=== PATIENT | male | born 1995 | race Caucasian/White ===

== ENCOUNTER 2018-07-24 09:26 | Emergency (ER) | payer OTHER ==
[2018-07-24 09:54] VITALS: BP 127/70
[2018-07-24] MEDS ORDERED: Ibuprofen TAB* 600 MG PO ONE (10:20)
--- NOTE | 2018-07-24 10:25 | UC ---
Hand/Wrist HPI - HPI Summary HPI Summary: 22 y/o male presents to the urgent care c/o left hand pain and difficulty making a fist s/p injury last night. Pt reports he was arguing and became very upset and hit the floor w/ his hand. This morning his hand is swollen and unable to make a fist or bend fingers 4th and 5th. Pain is 2/10 at rest and 6/ 10 w/ movement. He has not taking anything to alleviate symptoms. Pt denies numbness or tingling sensation over the hand or fingers, SOB chest pain, abdominal pain, N/V/D. Hx of previous injury to that hand. - History Of Current Complaint Chief Complaint: UCUpperExtremity Stated Complaint: HAND INJURY Time Seen by Provider: 07/24/18 10:08 Hx Obtained From: Patient Onset/Duration: Sudden Onset, Lasting Hours - 12 hrs, Still Present, Worse Since - today Severity Initially: Moderate Severity Currently: Moderate Pain Intensity: 6 Pain Scale Used: 0-10 Numeric Character Of Pain: Sharp Aggravating Factor(s): Movement, Lifting, Flexion, Pulling Alleviating Factor(s): Rest Associated Signs And Symptoms: Positive: Swelling - mild. Negative: Bruising, Fever, Weakness, Numbness/Tingling Related History: Dominant Hand Right - Allergies/Home Medications Allergies/Adverse Reactions: Allergies Allergy/AdvReac Type Severity Reaction Status Date / Time No Known Allergies Allergy Verified 07/24/18 09:54 Home Medications: Home Medications ALPRAZolam TAB* [Xanax TAB*] 0.25 mg PO Q6H PRN 07/24/18 [History Confirmed ] ARIPiprazole TAB* [Abilify TAB*] 5 mg PO DAILY 07/24/18 [History Confirmed ] PMH/Surg Hx/FS Hx/Imm Hx Previously Healthy: Yes Respiratory History: Asthma - Surgical History Surgical History: None - Family History Known Family History: Positive: Hypertension Negative: Cardiac Disease, Diabetes - Social History Occupation: Student Lives: With Family Alcohol Use: Occasionally Substance Use Type: None Substance Use Comment - Amount & Last Used: not currently Smoking Status (MU): Never Smoked Tobacco Have You Smoked in the Last Year: No - Immunization History Most Recent Influenza Vaccination: Unknown Most Recent Tetanus Shot: unk Most Recent Pneumonia Vaccination: Unknown Vaccination Up to Date: Yes Review of Systems All Other Systems Reviewed And Are Negative: Yes Constitutional: Positive: Negative Skin: Positive: Other - left hand swelling s/p injury Eyes: Positive: Negative ENT: Positive: Negative Respiratory: Positive: Negative Cardiovascular: Positive: Negative Gastrointestinal: Positive: Negative Genitourinary: Positive: Negative Motor: Positive: Negative Neurovascular: Positive: Negative Musculoskeletal: Positive: Decreased ROM - left hand and 4th and 5th finger s/p injury, Other: - left hand pain s/p injury Neurological: Positive: Negative Psychological: Positive: Negative Is Patient Immunocompromised?: No Physical Exam - Summary Physical Exam Summary: Vital Signs Reviewed: Yes General: Well developed well nourished male sitting in the examining table w/o any apparent distress Eyes: Positive: Conjunctiva Clear - PERRLA, EOMI ENT: Positive: Normal ENT inspection, Hearing grossly normal, Pharynx normal, TMs normal Neck: Positive: Supple, Nontender, No Lymphadenopathy Respiratory: Positive: Chest non-tender, Lungs clear, Normal breath sounds, No respiratory distress Cardiovascular: Positive: RRR, No Murmur, Pulses Normal, Brisk Capillary Refill Abdomen Description: Positive: Nontender, No Organomegaly, Soft. Negative: CVA Tenderness (R), CVA Tenderness (L) Bowel Sounds: Positive: Present Musculoskeletal: Positive: Strength Intact, No Edema,left Hand/Fingers: the L hand is without obvious asymmetry or deformity when compared to the R hand. mild swelling around dorsal side of #5 metacarpal and MCPJ, no erythema, atrophy, or obvious deformity. No surface trauma, open wounds,bony deformity. Normal cascade of fingers. Normal flexion and extension of fingers, except for # 5 phalanx due to pain. FDS and FDP intact against resistance. No focal fullness , throbbing pain, swelling of finger tip. Pulses and capillary refill WNL, positive reflexes and sensation intact Neurological Exam: Normal Psychological Exam: Normal Skin Exam: Normal Triage Information Reviewed: Yes Vital Signs: Initial Vital Signs Temp 98.3 F 07/24/18 09:46 Pulse 79 07/24/18 09:46 Resp 18 07/24/18 09:46 BP 127/70 07/24/18 09:46 Pulse Ox 99 07/24/18 09:46 Hand/Wrist Course/Dx - Course Course Of Treatment: 22 y/o male presents to the urgent care c/o left hand pain and difficulty making a fist s/p injury last night. Pt reports he was arguing and became very upset and hit the floor w/ his hand. This morning his hand is swollen and unable to make a fist or bend fingers 4th and 5th. Pain is 2/10 at rest and 6/10 w/ movement. He has not taking anything to alleviate symptoms. Pt denies numbness or tingling sensation over the hand or fingers, SOB chest pain, abdominal pain, N/V/D. Hx of previous injury to that hand. Hx obtained. Left hand X-ray ordered: impression: grossly non-displaced intrarticular fracture of the radial margin at the base of the 5th metacarpal w/ soft tissue swelling. Dr Carrington consulted on Pt's symptoms and he recommended ulnar gutter splint. Pt' s finger immobilized with a ulnar gutter splint. Pt tolerated well procedure and neurovascular intact after splinting.. Pt given Ice and Ibuprofen PO at the clinic by nurse for pain. Pain decrease. Pt Rx same Medication and advised RICE for pain. Advised to F/u with Orthopedic Dr Scanlon in 1-2 days for further evaluation and treatment. Pt understood and agreed with D/C instructions. - Differential Dx/Diagnosis Differential Diagnosis/HQI/PQRI: Contusion, Dislocation, Fracture, Sprain, Strain, Tendonitis Provider Diagnosis: Left hand pain, Nondisplaced fracture of fifth metacarpal bone of left hand Discharge - Sign-Out/Discharge Documenting (check all that apply): Patient Departure - D/C home All imaging exams completed and their final reports reviewed: Yes - Discharge Plan Condition: Stable Disposition: HOME Prescriptions: Ibuprofen TAB* [Motrin TAB* 600 MG] 600 mg PO Q6H PRN #30 tab PRN Reason: Pain Patient Education Materials: Hand Fracture (ED) Referrals: Ryan Scanlon MD [Medical Doctor] - 1 Day Vinicius Hughes MD [Primary Care Provider] - 3 Days Additional Instructions: 1-Please take Ibuprofen PO q6-8hrs prn after meals as directed to alleviate pain and swelling. 2-Please apply ice, keep your hand immobilized with the splint. 3- Please f/u with Orthopedic Dr Scanlon in 1-2 days for further evaluation and treatment. - Billing Disposition and Condition Condition: STABLE Disposition: Home
== END 2018-07-24 11:22 | disposition home or self-care (01) ==
LOC: UCEAST 09:26
DX: S62.347A Nondisplaced fracture of base of fifth metacarpal bone, left hand, initial encounter for closed fracture (principal); W22.09XA Striking against other stationary object, initial encounter; Y92.9 Unspecified place or not applicable
CPT/HCPCS: 99212; A9270-GY; G0463

== ENCOUNTER 2018-08-30 10:03 | Emergency (ER) | payer OTHER ==
--- OUTSIDE RECORDS SUMMARY | 2018-08-30 10:10 | XMS REPORT | Continuity of Care Document ---
:1995 External Reference #:[id number] Author Name Lillian Stephenson Care Team Providers Name Role Phone Vinicius Hughes MD Primary Care Physician Unavailable Payers Type Date Identification Numbers Payment Provider Subscriber Policy Number: [id number] [employer] drew maier dsouza PayID: [id number] [address] [place] [address] Effective: 2000 Policy Number: [id number] Himanshu Wang Expires: 2000 PayID: [id number] [address] [place] [address] Advance Directives Description No Information Available Problems Date Description Provider Status Onset: 08/13/2018 Nondisplaced fracture of base of fifth Vinicius Lou MD Active metacarpal bone, left hand, subsequent encounter for fracture with routine healing Family History Date Family Member(s) Problem(s) Comments General No Current Problems Social History Type Date Description Comments Sex Unknown Lives With Roommate Occupation Not Currently Working ETOH Use Denies alcohol use Tobacco Use Start: Unknown Patient has never smoked Smoking Status Reviewed: 08/13/18 Patient has never smoked Exercise Type/Frequency Exercises regularly Allergies, Adverse Reactions, Alerts Description No Known Drug Allergies Medications Medication Date Status Form Strength Qnty SIG Indications Ordering Provider Ibuprofen 200 0 Active Tablets 200mg 400-600mg Unknown 000 every 6 hours as needed for pain. Xanax 0 Active Tablets 0.25mg one by Unknown 000 mouth up to three times daily as needed for anxiety Inderal LA Active Caps ER 60mg 1 by mouth Unknown 000 24HR every day Depakote Active Tablets DR 500mg 1 by mouth Unknown 000 twice a day Immunizations CPT Code Status Date Vaccine Lot # [id number] Given 03/11/2002 IPV/Poliomyelitis Immunization [id number] Given 03/11/2002 Measles Mumps And Rubella MMR 07542 Given 03/11/2002 DTaP Vaccine Younger Than 7 [id number] Given 02/25/2001 Poliovirus Vaccine OPV Live Oral Use 64552 Given 02/25/2001 Measles Mumps And Rubella MMR 53954 Given 02/25/2001 DTaP Vaccine Younger Than 7 76839 Given 03/30/1998 DTP Toxoids & Hib Vaccine 97568 Given 03/30/1998 Measles Mumps And Rubella MMR Vital Signs Date Vital Result Comment 08/13/2018 9:19am Height 70 inches 5'10" Heart Rate 70 /min BP Systolic 118 mmHg BP Diastolic 78 mmHg Respiratory Rate 18 /min Body Temperature 98.1 F Pain Level 1 07/26/2018 2:14pm Height 70 inches 5'10" Weight 160.00 lb BP Systolic Sitting 110 mmHg BP Diastolic Sitting 66 mmHg Respiratory Rate 16 /min Pain Level 1 BMI (Body Mass Index) 23.0 kg/m2 Results Description No Information Available Procedures Date Code Description Status 07/26/2018 36215 Short Arm Cast Application Completed Encounters Type Date Location Provider Dx Diagnosis Office Visit 07/26/2018 Orthopedic Vinicius Lou, S62.347A Nondisp fx of 2:00p [facility] AT MD base of fifth Cerulean metacarpal bone, left hand, init Plan of Treatment Future Appointment(s):09/04/2018 10:15 am - Vinicius Lou MD [facility]/13/2018 - Vinicius Lou, MDS62.347D Nondisplaced fracture of base of fifth metacarpal bone, leftFollow up:Follow up: 2 weeks
[2018-08-30 10:13] VITALS: BP 131/83
[2018-08-30] MEDS ORDERED: Azithromycin TAB* 250 MG PO ONE (10:41)
[2018-08-30] MEDS ORDERED: cefTRIAXone VIAL(*) 250 MG VIAL IM ONE (10:41)
[2018-08-30] MEDS ORDERED: Lidocaine 1%* 5 ML VIAL INJ ONE (10:45)
--- NOTE | 2018-08-30 10:47 | UC ---
Complaint Male HPI - HPI Summary HPI Summary: EX-GIRLFRIEND CALLED HIM YESTERDAY TO ADVISE HIM SHE HAD BEEN DIAGNOSED WITH CHLAMYDIA. PATIENT IS HERE FOR TESTING AND TREATMENT. HE IS ASYMPTOMATIC. NO DYSURIA OR PENILE DISCHARGE. NO ABDOMINAL PAIN, FEVER, NAUSEA. LAST UNPROTECTED SEX ABOUT 1-1/2 WEEKS AGO. - History of Current Complaint Chief Complaint: UCSTDScreening Stated Complaint: PERSONAL Time Seen by Provider: 08/30/18 10:19 Hx Obtained From: Patient Pain Intensity: 0 Pain Scale Used: 0-10 Numeric Associated Signs And Symptoms: Positive: Negative - Allergies/Home Medications Allergies/Adverse Reactions: Allergies Allergy/AdvReac Type Severity Reaction Status Date / Time No Known Allergies Allergy Verified 08/30/18 10:13 Home Medications: Home Medications Divalproex ER TAB(*) [Depakote ER TAB(*)] 500 mg PO DAILY 08/30/18 [History Confirmed 08/30/18] Propranolol TAB* [Inderal TAB*] 10 mg PO DAILY 08/30/18 [History Confirmed 08/30] Venlafaxine EXT RELEASE CAP* [Effexor Xr CAP*] 37.5 mg PO DAILY 08/30/18 [ History Confirmed 08/30/18] PMH/Surg Hx/FS Hx/Imm Hx Psychological History: Anxiety, Depression - Surgical History Surgical History: None - Family History Known Family History: Positive: Hypertension Negative: Cardiac Disease, Diabetes - Social History Alcohol Use: Occasionally Substance Use Type: None Substance Use Comment - Amount & Last Used: not currently Smoking Status (MU): Never Smoked Tobacco Have You Smoked in the Last Year: No - Immunization History Most Recent Influenza Vaccination: Unknown Most Recent Tetanus Shot: unk Most Recent Pneumonia Vaccination: Unknown Vaccination Up to Date: Yes Review of Systems All Other Systems Reviewed And Are Negative: Yes Constitutional: Positive: Negative Skin: Positive: Negative Respiratory: Positive: Negative Cardiovascular: Positive: Negative Gastrointestinal: Positive: Negative Genitourinary: Positive: Negative Physical Exam Triage Information Reviewed: Yes Appearance: Well-Appearing, No Pain Distress, Well-Nourished Vital Signs: Initial Vital Signs Temp 97.9 F 08/30/18 10:08 Pulse 89 08/30/18 10:08 Resp 16 08/30/18 10:08 BP 131/83 08/30/18 10:08 Pulse Ox 99 08/30/18 10:08 Vital Signs Reviewed: Yes Eyes: Positive: Conjunctiva Clear ENT: Positive: Hearing grossly normal Neck: Positive: Supple Respiratory: Positive: No respiratory distress, No accessory muscle use Cardiovascular: Positive: Pulses Normal Abdomen Description: Positive: Soft Male Genital Exam: Positive: Other - DECLINED BY PT Musculoskeletal: Positive: No Edema Neurological: Positive: Alert Psychological: Positive: Age Appropriate Behavior Skin: Negative: Rashes Complaint Male Course/Dx - Course Course Of Treatment: WILL TREAT EMPIRICALLY FOR GONORRHEA AND CHLAMYDIA WITH ROCEPHIN 250 MG IM AND AZITHROMYCIN 1 G BY MOUTH. NO SEX FOR AT LEAST 10 DAYS. BLOOD DRAWN FOR HIV AND SYPHILIS. ADVISED PATIENT TO RECHECK IN 3-6 MONTHS TO CONFIRM NO SEROCONVERSION. COUNSELED HIM ON SAFER SEX PRACTICES. - Differential Dx/Diagnosis Provider Diagnosis: STD exposure Discharge - Sign-Out/Discharge Documenting (check all that apply): Patient Departure All imaging exams completed and their final reports reviewed: No Studies - Discharge Plan Condition: Stable Disposition: HOME Patient Education Materials: Sexually Transmitted Diseases (ED) Referrals: Vinicius Hughes MD [Primary Care Provider] - If Needed Additional Instructions: YOU HAVE BEEN TREATED EMPIRICALLY FOR GONORRHEA AND CHLAMYDIA WITH ROCEPHIN 250 MG AND AZITHROMYCIN 1 G. NO SEX FOR AT LEAST 10 DAYS. USE BARRIER METHODS OF CONTRACEPTION EVERY TIME YOU HAVE SEX. BLOOD DRAWN FOR HIV AND SYPHILIS. IF NEGATIVE RECOMMEND A RECHECK IN 3-6 MONTHS. [facility] [place] Address: [address] [place] [address] - Billing Disposition and Condition Condition: STABLE Disposition: Home
--- NOTE | 2018-09-01 15:58 | UC ---
- Progress Note Progress Note: Please advise that syphilis and HIV 1 and 2 are negative. Course/Dx - Diagnoses Provider Diagnoses: STD exposure Discharge - Sign-Out/Discharge Documenting (check all that apply): Patient Departure All imaging exams completed and their final reports reviewed: No Studies - Discharge Plan Condition: Stable Disposition: HOME Patient Education Materials: Sexually Transmitted Diseases (ED) Referrals: Vinicius Hughes MD [Primary Care Provider] - If Needed Additional Instructions: YOU HAVE BEEN TREATED EMPIRICALLY FOR GONORRHEA AND CHLAMYDIA WITH ROCEPHIN 250 MG AND AZITHROMYCIN 1 G. NO SEX FOR AT LEAST 10 DAYS. USE BARRIER METHODS OF CONTRACEPTION EVERY TIME YOU HAVE SEX. BLOOD DRAWN FOR HIV AND SYPHILIS. IF NEGATIVE RECOMMEND A RECHECK IN 3-6 MONTHS. [facility] [place] Address: [address] [place] [address] - Billing Disposition and Condition Condition: STABLE Disposition: Home
== END 2018-08-30 11:13 | disposition home or self-care (01) ==
LOC: UCEAST 10:03
DX: Z20.2 Contact with and (suspected) exposure to infections with a predominantly sexual mode of transmission (principal)
CPT/HCPCS: 36415; 86592; 86703; 96372; 99212; A9270-GY; G0463; J0696

== ENCOUNTER 2018-12-26 17:54 | Inpatient (IN) | payer OTHER ==
--- NOTE | 2018-12-26 18:25 | ED ---
Psychiatric Complaint - HPI Summary HPI Summary: The patient is a 23 y/o M presenting to [facility] with a chief complaint of SI for the last few years, with worsening today. While the patient has been having suicidal thoughts, his feelings were not worse today than usual, but he had an appointment with his therapist, Reinaldo Betancourt, for the first time in 3 months, and the therapist felt that the patient needed come to the ED. He denies SI and a plan at this time, but states that he thinks about suicide daily, and he has plans in mind. He additionally reports he is not sleeping well. He denies fever , chills, erythema of eyes, sore throat, SOB, cough, CP, abd pain, N/V/, dysuria , hematuria, myalgia, edema, rash, and dizziness. Hx of depression, bipolar disorder, PTSD, polysubstance abuse, suicide attempt, violent episodes, self- harm. Nonsmoker, occasional EtOH, methamphetamine (smoke) and bath salts. - History Of Current Complaint Chief Complaint: EDMentalHealth Time Seen by Provider: 12/26/18 18:18 Hx Obtained From: Patient Onset/Duration: Lasting Weeks - years, Still Present, Other - not particularly worse today, but brought to therapist's attention Timing: Weeks Severity Initially: Moderate Severity Currently: Mild Character: Depressed Aggravating Factor(s): Nothing Alleviating Factor(s): Nothing Associated Signs And Symptoms: Positive: Sleep Disturbance Related History: Positive For: Prior Psychiatric Issues - depression, Has Suicidal: Denies: Thoughts - not currently, but on a daily basis, With A Plan - previous plans but nothing currently - Allergies/Home Medications Allergies/Adverse Reactions: Allergies Allergy/AdvReac Type Severity Reaction Status Date / Time No Known Allergies Allergy Verified 12/26/18 18:07 PMH/Surg Hx/FS Hx/Imm Hx Endocrine/Hematology History: Denies: Hx Diabetes, Hx Thyroid Disease Cardiovascular History: Denies: Hx Hypercholesterolemia, Hx Hypertension, Hx Pacemaker/ICD, Hx Peripheral Vascular Disease Respiratory History: Denies: Hx Asthma, Hx Chronic Obstructive Pulmonary Disease (COPD) GI History: Denies: Hx Ulcer Musculoskeletal History: Denies: Hx Arthritis, Hx Rheumatoid Arthritis, Hx Osteoporosis Sensory History: Denies: Hx Cataracts, Hx Contacts or Glasses, Hx Glaucoma, Hx Hearing Aid Opthamlomology History: Denies: Hx Cataracts, Hx Contacts or Glasses, Hx Glaucoma Neurological History: Denies: Hx Headaches, Hx Seizures, Hx Transient Ischemic Attacks (TIA) Psychiatric History: Reports: Hx Depression, Hx Suicide Attempt, Hx of Violent Episodes Against Others, Other Psychiatric Issues/Disorders - depression, self harm Denies: Hx Anxiety, Hx Eating Disorder, Hx Panic Disorder - Surgical History Surgical History: None Surgery Procedure, Year, and Place: none Infectious Disease History: No Infectious Disease History: Denies: Hx Clostridium Difficile, Hx Hepatitis, Hx Human Immunodeficiency Virus (HIV), Hx of Known/Suspected MRSA, Hx Shingles, Hx Tuberculosis, Hx Known/ Suspected VRE, Hx Known/Suspected VRSA, History Other Infectious Disease, Traveled Outside the [place] in Last 30 Days - Family History Known Family History: Positive: Hypertension Negative: Cardiac Disease, Diabetes - Social History Alcohol Use: Occasionally Substance Use Type: Reports: Other - methamphetamine, bath salts Smoking Status (MU): Never Smoked Tobacco Have You Smoked in the Last Year: No Review of Systems Negative: Fever, Chills Negative: Erythema Negative: Sore Throat Negative: Chest Pain Negative: Shortness Of Breath, Cough Negative: Abdominal Pain, Vomiting, Nausea Negative: dysuria, hematuria Negative: Myalgia, Edema Negative: Rash Neurological: Other - POSITIVE: not sleeping well; NEGATIVE: dizziness Positive: Other - NEGATIVE: SI All Other Systems Reviewed And Are Negative: Yes Physical Exam - Summary Physical Exam Summary: Constitutional: Well-developed, Well-nourished, Alert. (-) Distressed Skin: Warm, Dry HENT: Normocephalic; Atraumatic Eyes: Conjunctiva normal Neck: Musculoskeletal ROM normal neck. (-) JVD, (-) Stridor, (-) Tracheal deviation Cardio: Rhythm regular, rate normal, Heart sounds normal; Intact distal pulses; The pedal pulses are 2+ and symmetric. Radial pulses are 2+ and symmetric. (-) Murmur Pulmonary/Chest wall: Effort normal. (-) Respiratory distress, (-) Wheezes, (-) Rales Abd: Soft, (-) tenderness, (-) Distension, (-) Guarding, (-) Rebound Musculoskeletal: (-) Edema Lymph: (-) Cervical adenopathy Neuro: Alert, Oriented x3 Psych: Mood and affect Normal, anxious Triage Information Reviewed: Yes Vital Signs On Initial Exam: Initial Vitals Temp Pulse Resp BP Pulse Ox 99.1 F 88 18 150/92 98 12/26/18 18:00 12/26/18 18:00 12/26/18 18:00 12/26/18 18:00 12/26/18 18:00 Vital Signs Reviewed: Yes Diagnostics - Vital Signs Vital Signs Temp Pulse Resp BP Pulse Ox 12/26/18 18:00 99.1 F 88 18 150/92 98 - Laboratory Result Diagrams: 12/26/18 18:27 12/26/18 18:27 Lab Statement: Any lab studies that have been ordered have been reviewed, and results considered in the medical decision making process. Re-Evaluation - Re-Evaluation First Eval Re-Evaluation Time: 18:30 Comment: Patient is medically cleared. Course/Dx - Course Assessment/Plan: The patient is a 23 y/o M presenting to [facility] with a chief complaint of SI for the last few years, with worsening today. While the patient has been having suicidal thoughts, his feelings were not worse today than usual , but he had an appointment with his therapist, Reinaldo Betancourt, for the first time in 3 months, and the therapist felt that the patient needed come to the ED. He denies SI and a plan at this time, but states that he thinks about suicide daily, and he has plans in mind. He additionally reports he is not sleeping well. He denies fever, chills, erythema of eyes, sore throat, SOB, cough, CP, abd pain, N/V/, dysuria, hematuria, myalgia, edema, rash, and dizziness. Hx of depression, bipolar disorder, PTSD, polysubstance abuse, suicide attempt, violent episodes, self-harm. Nonsmoker, occasional EtOH, methamphetamine (smoke) and bath salts. Upon physical exam, the patient appears to be anxious. I reviewed the note from Reinaldo Betancourt, which reports that the patient has hx of depression, bipolar disorder, PTSD, and polysubstance abuse with medications including Wellbutrin XL 450mg, klonopin 2mg, lithium 150mg and 300mg (750mg total), Prazosin 2mg night. He also stated that he looked for the keys to his grandfather's gun cabinet and had a gun in his mouth. Dr. Betancourt recommends establishment with chemical dependence and psychological counseling. Today was only his second meeting with the patient. Blood work reveals chloride of 99, creatinine of 1.25, and glucose of 69. UA reveals ascorbic acid. Toxicology report reveals amphetamines, cocaine, cannabinoids, and serum alcohol of 10. In the ED course, the patient was administered Klonopin. The patient is medically cleared. He is diagnosed with substance abuse, amphetamine abuse, and suidicality. The patient is a sign-out from Dr. Jairo Francois MD, to Dr. Blanka Asif MD, at change of shift at 1900 on 12/26/2018 pending MHE and disposition. - Differential Dx/Clinical Impression Provider Diagnosis: Bipolar disorder, Substance abuse, Amphetamine abuse, Suicidal risk Discharge - Sign-Out/Discharge Documenting (check all that apply): Sign-Out Patient Signing out patient TO: Blanka Asif - Patient is a sign-out at change of shift pending MHE and disposition. Patient Received Moderate/Deep Sedation with Procedure: No - Discharge Plan Condition: Stable Disposition: PSYCHIATRIC FACILITY-[facility] [place] Referrals: Vinicius Hughes MD [Primary Care Provider] - - Billing Disposition and Condition Condition: STABLE Disposition: Psychiatric Facility [facility] [place] - Attestation Statements Document Initiated by Scribe: Yes Documenting Scribe: Aislinn Trevino Provider For Whom Scribe is Documenting (Include Credential): Dr. Jairo Francois MD Scribe Attestation: Aislinn Clark scribed for Dr. Jairo Francois MD on 12/26/18 at 2113. Status of Scribe Document: Ready
[2018-12-26 18:40] LABS: ABS Eosinophils 0.3 10^3/ul (0-0.6); ABS Lymphocytes 1.7 10^3/ul (1.0-4.8); ABS Monocytes 0.7 10^3/ul (0-0.8); ABS Neutrophils 5.7 10^3/ul (1.5-7.7); Eosinophil % 3.5 %; Hematocrit 49 % (42-52); Hemoglobin 16.8 g/dL (14.0-18.0); Lymphocyte % 20.3 %; Mean Corpuscular HGB Conc 35 g/dL (31-36); Mean Corpuscular Hemoglobin 31 pg (27-31); Mean Corpuscular Volume 89 fL (80-94); Mean Platelet Volume 9.8 fL (7.4-10.4); Nucleated Red Blood Cells % 0.3; Platelet Count 157 10^3/uL (150-450); Red Blood Count 5.48 10^6 /uL (4.18-5.48); Red Cell Distribution Width 13 % (10-15); White Blood Count 8.5 10^3/uL (3.5-10.8)
[2018-12-26 18:48] LABS: Urine Appearance Cloudy; Urine Bilirubin Negative (Negative); Urine Blood Negative (Negative); Urine Color Yellow; Urine Glucose Negative (Negative); Urine Ketones Negative (Negative); Urine Nitrite Negative (Negative); Urine Protein Negative (Negative); Urine Specific Gravity 1.029 (1.010-1.030); Urine Urobilinogen Negative (Negative)
[2018-12-26 18:53] LABS: ALT 14 U/L (7-52); AST 20 U/L (13-39); Albumin 4.9 g/dL (3.2-5.2); Albumin/Globulin Ratio 1.6 (1-3); Alkaline Phosphatase 56 U/L (34-104); Anion Gap 9 mmol/L (2-11); BUN/Creatinine Ratio 18.4 (8-20); Blood Urea Nitrogen 23 mg/dL (6-24); CO2 Carbon Dioxide 29 mmol/L (22-32); Calcium 9.9 mg/dL (8.6-10.3); Chloride 99 mmol/L (101-111); EGFR African American 87.4 (>60); EGFR Non-African American 72.2 (>60); Glucose 69 mg/dL (70-100); Potassium 3.7 mmol/L (3.5-5.0); Sodium 137 mmol/L (135-145); Total Protein 7.9 g/dL (6.4-8.9)
[2018-12-26 19:03] LABS: Alcohol 10 mg/dL (<10); Salicylate < 2.50 mg/dL (<30)
[2018-12-26 19:05] LABS: Acetaminophen < 15 mcg/mL
[2018-12-26 19:05] LABS: Urine Benzodiazepine Screen None Detected (None Detect); Urine Opiates Screen None Detected (None Detect)
[2018-12-26 19:18] LABS: TSH (Thyroid Stimulating Horm) 0.81 mcIU/mL (0.34-5.60)
--- NOTE | 2018-12-26 19:33 | ED ---
Progress - Progress Note Progress Note: This pt was signed out from Dr. Francois to Dr. Asif at 1900 on 12/26/18, pending disposition, awaiting mental health evaluation. Pt had a mental health evaluation and his case was reviewed by Dr. Nielsen, psychiatrist. Per mental health insurance administrative assistant, Dr. Nielsen will admit the pt to [facility] with dx bipolar disorder. Course/Dx - Diagnoses Provider Diagnoses: Bipolar disorder Discharge - Sign-Out/Discharge Documenting (check all that apply): Patient Departure - Admit to [facility], Receiving Sign-Out Receiving patient FROM: Jairo Francois Patient Received Moderate/Deep Sedation with Procedure: No - Discharge Plan Condition: Stable Disposition: PSYCHIATRIC FACILITY[facility] Referrals: Vinicius Hughes MD [Primary Care Provider] - - Attestation Statements Document Initiated by Scribe: Yes Documenting Scribe: Deya Whitley Provider For Whom Scribe is Documenting (Include Credential): Blanka Asif MD Scribe Attestation: I, Deya [place]ley, scribed for Blanka Asif MD on 12/26/18 at 8284. Status of Scribe Document: Ready
[2018-12-26] MEDS ORDERED: clonazePAM TAB(*) 1 MG PO ONE (20:25)
[2018-12-26] MEDS ORDERED: clonazePAM TAB(*) 1 MG PO PRN (23:17)
[2018-12-26] MEDS ORDERED: Acetaminophen TAB* 325 MG PO PRN (23:20)
[2018-12-26] MEDS ORDERED: Al Hydrox/Mg Hydrox/Simet LIQ* 30 ML UDC PO PRN (23:20)
[2018-12-26] MEDS ORDERED: Lithium Carbonate CAP 150 MG ** CAPSULE PO SCH (23:30)
[2018-12-26] MEDS: Prazosin CAP* 1 MG PO SCH (23:30)
[2018-12-26] MEDS ORDERED: Lithium Carbonate TAB* 300 MG PO SCH (23:30)
[2018-12-27] MEDS ORDERED: Lithium Carbonate TAB* 300 MG PO SCH (09:00)
[2018-12-27 09:13] LABS: HDL Cholesterol 53.6 mg/dL
[2018-12-27] MEDS: Vitamin THERAPEUTIC TAB PO SCH (09:17)
[2018-12-27] MEDS: buPROPion SR TAB.SR* 150 MG PO SCH (09:17)
[2018-12-27] MEDS ORDERED: clonazePAM TAB(*) 1 MG PO ONE (12:27)
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
[2018-12-27] MEDS: Lithium Carbonate CAP 150 MG ** CAPSULE PO SCH (20:31)
[2018-12-27] MEDS: Prazosin CAP* 1 MG PO SCH (20:31)
[2018-12-27] MEDS: clonazePAM TAB(*) 1 MG PO PRN (21:54)
[2018-12-28] MEDS: Lithium Carbonate CAP 150 MG ** CAPSULE PO SCH ×2 (08:51→20:39)
[2018-12-28] MEDS: Vitamin THERAPEUTIC TAB PO SCH (08:51)
[2018-12-28] MEDS: buPROPion SR TAB.SR* 150 MG PO SCH (08:51)
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
[2018-12-28] MEDS: hydrOXYzine HCL TAB* 50 MG PO PRN (18:16)
[2018-12-28] MEDS: Prazosin CAP* 1 MG PO SCH (20:44)
[2018-12-28] MEDS: clonazePAM TAB(*) 1 MG PO PRN (20:46)
[2018-12-28] MEDS: Calamine LOTION* 120 ML TOPICAL SCH (20:49)
[2018-12-29] MEDS: buPROPion SR TAB.SR* 150 MG PO SCH (09:28)
[2018-12-29] MEDS: Lithium Carbonate CAP 150 MG ** CAPSULE PO SCH ×2 (09:28→20:43)
[2018-12-29] MEDS: Vitamin THERAPEUTIC TAB PO SCH (09:28)
[2018-12-29] MEDS: Calamine LOTION* 120 ML TOPICAL SCH ×3 (09:30→20:55)
[2018-12-29] MEDS: hydrOXYzine HCL TAB* 50 MG PO PRN (16:03)
[2018-12-29] MEDS: Prazosin CAP* 1 MG PO SCH (20:43)
[2018-12-29] MEDS: clonazePAM TAB(*) 1 MG PO PRN (20:45)
[2018-12-30] MEDS: Lithium Carbonate CAP 150 MG ** CAPSULE PO SCH (09:12)
[2018-12-30] MEDS: buPROPion SR TAB.SR* 150 MG PO SCH (09:12)
[2018-12-30] MEDS: Vitamin THERAPEUTIC TAB PO SCH (09:13)
[2018-12-30] MEDS: Calamine LOTION* 120 ML TOPICAL SCH ×2 (09:14→13:00)
[2018-12-30 10:51] VITALS: BP 126/80
--- NOTE | 2018-12-31 10:39 | DS ---
CC: Dr. Betancourt; GIANNI Zacarias; Dr. Vinicius Hughes * DISCHARGE SUMMARY: DATE OF ADMISSION: 12/26/18 DATE OF DISCHARGE: 12/30/18 PROVIDER: Ellyn Yepez NP, in Psychiatry. SUPERVISING PHYSICIAN: Dr. Gerardo Devi.* (DICTATED BY ELLYN YEPEZ NP) DIAGNOSES: 1. Bipolar disorder type 2. 2. Generalized anxiety disorder. 3. Substance use disorder. CONDITION AT THE TIME OF DISCHARGE: Improved, psychiatrically cleared, stable. Participated in groups. Social with selected peers. He has done well here psychiatrically, although it was a stressful time and that affected him. Medications were added such has hydroxyzine and lithium, which he tolerated well. He is going to return to see Dr. Betancourt, and he will also see DARLINE Zacarias. He is also referred to the [facility] as well as Dr. Hughes. MENTAL STATUS EXAMINATION: At the time of discharge, Raj is anxious but cooperative, makes good eye contact and is eager to leave. He is alert and oriented x4. His grooming is good. His speech pace is normal. His thought processes are logical. He is not psychotic. He is not delusional. He denies AH, VH, SI, and HI. Insight and judgment are fair to good. He states he is willing and eager to follow up and he is urged to connect with his new therapist. DISCHARGE INSTRUCTIONS TO THE PATIENT: A. Medications: Bupropion XR 450 mg, clonazepam 1 mg at bedtime, hydroxyzine 50 mg q.4 hours p.r.n. anxiety, lithium carbonate 450 mg b.i.d., prazosin 2 mg at bedtime. B. Diet is regular. C. Activities are tolerated. He is a nonsmoker. There are no studies pending at the time of discharge. D. Followup care: He has appointments with Dr. Betancourt who has been alerted to his discharge and a message has been left requesting an appointment. Raj is requested to contact Dr. Betancourt after discharge in order to secure an appointment. Roxanne has an appointment on , 01/02/19 at noon. [facility] should be noted, it is on [address] [place] [address]; however, Raj has declined a referral for outpatient substance use treatment. He is encouraged to contact the [facility] if he desires to move forward with substance use treatment in the future. He has an appointment with Dr. Hughes on 01/06/19 at 9 :15 in the morning. E. Disposition: He is being discharged to home. F. substance abuse followup: Substance abuse treatment referrals were offered as well as medication and the patient declined. HOSPITAL COURSE: Part A: Chief complaint: "[SI]'s ever present, but I am able to work through it every day." The patient is a 23-year-old single white male with a long history of suicidal thoughts and drug abuse, who arrives brought in by himself by car and is here on a 939 status after going to see Dr. Betancourt for his second appointment with him and being urged to come to the hospital as the last 2 weeks has made it much more difficult for him to feel better and he states he is in affect mode. He states nothing is getting better. He feels nothing will ever get better and has been weighing heavier and heavier on him. He feels like there is no way out. At age 13, suicidal ideation started. He avoided ending his life by using positive self talk. He is a frequent user of the suicide hotline, and marijuana has helped as well. He states he is back and forth about wanting to . He is wishful that euthanasia were allowed so that there would be a medical procedure that would end his life rather than his own attempt or success , which he feels like would make a negative impact on his younger siblings. Part B: Psychiatric treatment was rendered. Raj was admitted to the adult behavioral unit and placed on 15-minute check for safety. Raj struggled significantly with anxiety and difficult events that occurred on the unit while he was here. He did interact with peers well and was appropriately social. He tolerated medication changes such as the increase in lithium very well and agreed to continue taking it. Raj "presented [his] case" to me to attempt to leave as soon as possible, which he did do. While he was presenting his case , his hands shook, he appeared almost terrified, and he at the same time demonstrated his desire to leave and how uncomfortable this situation was for him. No consults were entered for Raj. We did have a long conversation about suicidal ideation and things he can do in the meantime to reduce them and to help keep them off of his mind. We also discussed his anxiety. He is improved. He has done a lot of work, doing a lot of writing, doing some art, trying to discover things that bring him jeanna. He was eager to make a crisis plan and he is future oriented. ELLYN YEPEZ, GWEN [id number]/[facility] #: [id number] DIANNA
== END 2018-12-30 14:35 | disposition home or self-care (01) | DRG 885 ==
LOC: ED 17:54 → BSU 21:09
PROVIDERS: ADMIT Psychiatry & Neurology Psychiatry; ATTEND Psychiatry & Neurology Psychiatry
DX: F31.81 Bipolar II disorder (principal); R45.851 Suicidal ideations; F41.1 Generalized anxiety disorder; F15.10 Other stimulant abuse, uncomplicated; F43.10 Post-traumatic stress disorder, unspecified; Z91.5 Personal history of self-harm; Z81.8 Family history of other mental and behavioral disorders; Z81.4 Family history of other substance abuse and dependence; Z72.89 Other problems related to lifestyle; Z82.49 Family history of ischemic heart disease and other diseases of the circulatory system
CPT/HCPCS: 36415; 80053; 80061; 80178; 80307; 80320; 80329; 81003; 83036; 84443; 85025; 99222; 99231; 99238; 99284; A9270-GY; G0480

== ENCOUNTER 2019-05-27 11:41 | Emergency (ER) | payer OTHER ==
--- NOTE | 2019-05-27 11:45 | UC ---
Complaint Male HPI - HPI Summary HPI Summary: 23 yo male presents with ?hemorrhoid. He tells me that for the last 2 weeks he has had increased straining with bowel movements. For the last ~10 days he has noticed a lump around his anus that is painful to touch and when he sits down. Today he was having a BM and noticed some bright red blood in the bowl and on the paper. Had increased pain the to anal lump. He washed the area with soap and water and bleeding stopped, but he went to work today and bleeding has been oozing all day - prompting his visit to the . Nothing OTC for his symptoms. Has a BM daily. No dark/tarry stools. Denies abdominal pain, n/v, dysuria. No hx of IBD. Today he mentions on triage that he has thoughts of hurting himself (cutting/ burning), but this is a chronic issue and he saw his counselor yesterday for this. He denies wanting to commit suicide at this time. He has no current plan or plan to harm others. He states he has been admitted to the hospital in the past for mental health and feels like this would be beneficial to him now for med adjustment, but states he has a friend coming into town on 05/29 and is very excited to see them. I offered to have him go to the hospital now for a mental health eval, but he declines. - History of Current Complaint Stated Complaint: PRIVATE ISSUE Time Seen by Provider: 05/27/19 11:45 Hx Obtained From: Patient Onset/Duration: Gradual Onset Timing: Constant Severity Initially: Mild Severity Currently: Moderate Pain Intensity: 5 Pain Scale Used: 0-10 Numeric - Allergies/Home Medications Allergies/Adverse Reactions: Allergies Allergy/AdvReac Type Severity Reaction Status Date / Time No Known Allergies Allergy Verified 05/27/19 12:14 PMH/Surg Hx/FS Hx/Imm Hx Psychological History: Anxiety, Depression, Bipolar Disorder - Surgical History Surgical History: None Surgery Procedure, Year, and Place: none - Family History Known Family History: Positive: Hypertension Negative: Cardiac Disease, Diabetes - Social History Occupation: Employed Full-time Lives: With Family Alcohol Use: Occasionally Substance Use Type: Other - methamphetamine, bath salts Substance Use Comment - Amount & Last Used: pot 12/26/18 "12 bowls", meth "1 gm", cocaine 12/25/18, bath salts Smoking Status (MU): Never Smoked Tobacco Have You Smoked in the Last Year: No - Immunization History Most Recent Influenza Vaccination: Unknown Most Recent Tetanus Shot: unk Most Recent Pneumonia Vaccination: Unknown Vaccination Up to Date: Yes Review of Systems All Other Systems Reviewed And Are Negative: No Constitutional: Positive: Negative Skin: Positive: Negative Respiratory: Positive: Negative Cardiovascular: Positive: Negative Gastrointestinal: Positive: Negative Genitourinary: Positive: Other - Anal lump Neurovascular: Positive: Negative Neurological: Positive: Negative Psychological: Positive: Negative Physical Exam - Summary Physical Exam Summary: GENERAL: NAD. WDWN. No pain distress. SKIN: No rashes, sores, lesions, or open wounds. NECK: Supple. Nontender. No lymphadenopathy. CHEST: CTAB. No r/r/w. No accessory muscle use. Breathing comfortably and in no distress. CV: RRR. Pulses intact. Cap refill <2seconds ABDOMEN: Soft. NTTP. No distention or guarding. No CVA tenderness. Bowel sounds present RECTAL: ~6mm hemorrhoid at the 2 o'clock position with dried clotted red blood. Mild TTP. NEURO: Alert. PSYCH: Age appropriate behavior. Triage Information Reviewed: Yes Vital Signs Reviewed: Yes Complaint Male Course/Dx - Course Course Of Treatment: Hemorrhoid. Will rx for cream and fiber supplement. Will refer him to surgery if symptoms do not improve. Mental health - see HPI. He denies having a suicide plan at this time, but does admit to self harm - chronic with good outpt f/u with therapist and psychiatrist. - Differential Dx/Diagnosis Provider Diagnosis: External hemorrhoid Discharge ED - Sign-Out/Discharge Documenting (check all that apply): Patient Departure All imaging exams completed and their final reports reviewed: No Studies - Discharge Plan Condition: Stable Disposition: HOME Prescriptions: Hemorrhoidal OINT* [Preparation H*] 1 applic GA Q12H #1 tube Methylcellulose [Citrucel] 1,000 mg PO DAILY #28 tablet Patient Education Materials: Hemorrhoids (ED), High Fiber Diet (ED) Forms: *Work Release Referrals: Vinicius Hughes MD [Primary Care Provider] - Reinaldo Fraser MD [Medical Doctor] - If Needed Additional Instructions: If you develop a fever, shortness of breath, chest pain, new or worsening symptoms - please call your PCP or go to the ED immediately. Drink plenty of water and a well balanced diet to increase your fiber If your hemorrhoid does not resolve with the cream - please call the Surgeon at the number below to schedule an appointment for further treatment - Billing Disposition and Condition Condition: STABLE Disposition: Home
[2019-05-27 12:14] VITALS: BP 131/68
== END 2019-05-27 12:29 | disposition home or self-care (01) ==
LOC: UCEAST 11:41
DX: K64.4 Residual hemorrhoidal skin tags (principal); F31.9 Bipolar disorder, unspecified
CPT/HCPCS: 99212; G0463